=== PATIENT | male | born 2000 | race Caucasian/White ===

== ENCOUNTER → 2023-08-25 14:35 | Outpatient (REF) | payer BC, SELFPAY | LOC: RAD 14:35 | PROVIDERS: ATTENDING PHYSICIAN Nurse Practitioner | DX: M25.571 Pain in right ankle and joints of right foot (principal) | CPT/HCPCS: 73610; 73630 ==

== ENCOUNTER 2023-12-28 23:00 | Emergency (ER) | payer BC, SELFPAY ==
[2023-12-28 23:16] VITALS: BP 111/72
--- NOTE | 2023-12-29 00:17 | ED.MUSCINJ ---
HPI-Injury
General
Chief Complaint: Musculo-Skeletal Complaint
Source: patient
Exam Limitations: none
Time Seen by Provider: 12/29/23 00:10
Nursing documentation reviewed up to this point in time: agreed with
History of Present Illness-Injury
Is this injury a work related problem?: No
Is pt an associate of [facility]/[place]?: No
Initial Injury comments:
Patient states he jammed finger on football while playing [employer]. Comlains of pain and swelling to left index finger.
Past History
Past History
ED Past Medical History: None
Social History
Tobacco: Non-smoker
Personal: Single
Living: with family
Employment: Employed
Review of Systems
Review of Systems
Allergies reviewed?: Yes
All Other Systems: ROS reviewed and negative except as documented in HPI and ROS
Constitutional: Reports no symptoms
Musculoskeletal: Reports joint pain (pain and swelling to left index finger)
Skin: Reports no symptoms
Neurological: Reports no symptoms
Psychiatric: Reports no symptoms
Phy Exam
General Physical Exam
General Presentation: well appearing and no apparent distress
General age: appears stated age
General Skin: warm and dry
General Habitus: normal
Musculoskeletal Exam
Musculoskeletal Exam: neuro vasc intact
Skin Exam
Skin Exam: normal color, warm/dry and no rash
Psychiatric Exam
Psychiatric Exam: normal mood/affect
Injury Course
Orders/Labs/Results
Orders:
Orders
12/28/23 23:19
Finger(s)/Thumb 2 View Lt [CR Finger(s)/thumb Min 2 Vw Lt] Urgent
Comment: + pain, swelling
Reason For Exam: jammed index finger playing football,
Indicate Which Finger:: Index Finger
12/29/23 00:13
Aluminium Finger Splint Left ONCE
*Radiology
Radiology exam reviewed: radiology read reviewed
*Critical Care Note
Total Time (30-74mins, 75-104mins- exclusive of procedures): Not Applicable
ED Attending Note
-
Portions of this chart may have been created with voice recognition software.� Occasional wrong word or��sound alike� substitutions may have occurred due to the inherent limitations of voice recognition software.
Discharge Plan
Departure
Patient Disposition: Home (Routine Discharge)
Date of Disposition: 12/29/23
Time of Disposition: 00:14
Patient with high blood pressure during this ER visit?: No
Condition: Good
Covid-19: Not Applicable
Discharge Problem:
Finger fracture
Instructions: Ibuprofen, Using Cold for Pain, Finger Fracture ED
Referrals:
Alex Blunt MD [Family Provider] -
Rey Antonio MD [Active] - Call in 1-3 days for appt
Interventions
Interventions:
ED-Musculoskeletal Assessment Last Done: 12/29/23 00:11
Discharge Date and Time
Print Language: MALAY
[2023-12-29 00:24] VITALS: BP 123/69
[2023-12-29 00:25] VITALS: BP 123/69
== END 2023-12-29 00:26 | disposition home or self-care (01) ==
LOC: EMR 23:00
PROVIDERS: EMERGENCY PHYSICIAN Emergency Medicine; FAMILY PHYSICIAN Internal Medicine
DX: S62.611A Displaced fracture of proximal phalanx of left index finger, initial encounter for closed fracture (principal); W23.0XXA Caught, crushed, jammed, or pinched between moving objects, initial encounter; Y93.61 Activity, american tackle football
CPT/HCPCS: 99283; 29130; 73140